=== PATIENT | male | born 1975 | race Caucasian/White ===

== ENCOUNTER 2018-08-26 05:10 | Day surgery (SDC) | payer BC ==
[~2018-08-26 05:10] MED LIST: CLARITIN 10 MG10 MG PO; FLUTICASONE PRO16 GM NASAL; GREEN TEA PO; MOBIC7.5 MG PO; OMEGA-3100 MG PO; PROBIOTIC250 MG PO; [UNRECOGNIZED DRUG - OTHER] PO
[2018-08-26 06:48] VITALS: BP 116/73; BMI 33.3
[2018-08-26] MEDS ORDERED: DURICEF500 MG PO (09:02)
[2018-08-26] MEDS ORDERED: PERCOCET 5-3251 TAB PO (09:02)
--- NOTE | 2018-08-26 14:21 | OP ---
PATIENT NAME: JAYLYN JETER MEDICAL RECORD: [id number] LOCATION:[facility] ADMISSION DATE: SURGEON: BRIAN ZUÑIGA DO DATE OF OPERATION: 08/26/2018 PROCEDURE PERFORMED: Bilateral endoscopic carpal tunnel release. PREOPERATIVE DIAGNOSIS: Bilateral carpal tunnel syndrome. POSTOPERATIVE DIAGNOSIS: Bilateral carpal tunnel syndrome. INDICATIONS: Mr. Jeter is a 43-year-old male who had numbness and tingling in his hands, waking him up at night constantly, and he lost feeling in them even to electric shock as he was putting up an electric fence he could not even feel it. He had nerve conduction study, which showed severe carpal tunnel, right greater than left at the wrist and I informed him that the severity of the compression I would hope to get sensation back, but I could not guarantee it and I could relieve the pain by decompressing it. We are doing the release and he insisted on doing bilateral. I warned him that it would be very painful and he would swell and that he would have to alter his activity, but he would have pain in the palm. He was okay with that and was aware of the risks of damage to the median nerve, need for further surgery, infection and bleeding and he signed the consent. SURGEON: Brian Zuñiga DO DESCRIPTION OF PROCEDURE: The patient was taken to the operative suite, laid in supine position, given 2 grams Ancef and general anesthetic and LMA was placed. The left lower extremity was first prepped and draped in sterile fashion. A timeout had been performed. Everyone was in agreement as to the correct side, site, patient and procedure. Esmarch was used to exsanguinate the left upper extremity and tourniquet was inflated to 250 mmHg, was up for 9 minutes. Incision then began over the wrist crease distally over the palmaris longus tendon and with the 15-blade and then just through the skin and then dissection was made down to the carpal tunnel with Ragnells. Carpal tunnel was opened. The median nerve was exposed and then the forearm fascia was released from distal to proximal under direct loupe visualization. I then entered the carpal tunnel with the dilators and then the sheath entered in the carpal tunnel. The camera was then put in and the probe and the rasp were used showing the transverse carpal ligament and no fibers or any appearance of a transligamentous median nerve or motor branch through the ligament. The knife was then brought in and the ligament was divided. Fat then herniated down to the carpal tunnel. The knife and the blade and the sheath was removed and Ragnell was used to visually look at the transverse carpal ligament. Scissors were used to spread any remaining fibers indicating good release. The tourniquet was then let down and bleeding was coagulated with bipolar and then the site was injected with 10 mL of 0.25% Marcaine with epinephrine and the incision was closed with 5-0 Monocryl in inverted interrupted fashion and then Dermabond placed over it and dressed with Adaptic, 4 x 4s, Kerlix and Coban lightly wrapped around it. The right upper extremity had been prepped and draped and wrapped with an Esmarch and exsanguinated and tourniquet was inflated to 250 mmHg and was up for 14 minutes. The incision was made at the wrist crease over the palmaris longus tendon as well. Dissection was made down to the carpal tunnel and then the forearm fascia was released from distal to proximal again. This side was quite tight and compressed severely. It was very hard to get the instruments even in, OPERATIVE REPORT [id number] JAYLYN JETER but the dilators were put in and then the sheath was put in. The camera was then put in and the transverse carpal ligament was probed. No evidence of a transligamentous nerve was seen and the rasp was also used. Then, the knife was brought in transecting the transverse carpal ligament. Fat then herniated down into the carpal tunnel. This was then visualized with a cine, larger and both sides of the transverse carpal ligament were viewed to be severed and transected. Any remaining fibers were spread with the scissors. The tourniquet was then let down at 14 minutes and any bleeding was coagulated with the bipolar and then injected with 10 mL of 0.25% Marcaine with epinephrine and then closed with 5-0 Monocryl in inverted interrupted fashion and Dermabond glue was placed. He was then awakened and taken to recovery in stable condition. BLOOD LOSS: Minimal. COMPLICATIONS: None. TRANSINT:[id number] Voice Confirmation ID: [id number] DOCUMENT ID: [id number] BRIAN ZUÑIGA DO at 1421 CC: [id number] DICTATION DATE: 08/26/18 0910 CLINICAL RN LIAISON: 08/26/18 1153 [facility] 08/26/18 [place] [id number] [place] [address]
== END 2018-08-26 10:50 | disposition home or self-care (01) ==
LOC: D.OPS 05:10 → D.PAN 07:00 → D.OPS 07:00 → D.PAN 12:15 → D.OPS 12:15
PROVIDERS: ATTEND Orthopaedic Surgery
DX: G56.03 Carpal tunnel syndrome, bilateral upper limbs (principal); Z01.812 Encounter for preprocedural laboratory examination

== ENCOUNTER → 2019-01-12 16:24 | Outpatient (CLI) | payer BC ==
[~2019-01-12 16:24] MED LIST changes: +DURICEF500 MG PO; +PERCOCET 5-3251 TAB PO
[2019-01-12 16:45] LABS: BASOPHILS 0.7 % (0-2); EOSINOPHILS 2.6 % (0-7); HEMATOCRIT 49.9 % (42.0-54.0); HEMOGLOBIN 17.1 g/dL (13.5-17.5); IMMATURE GRANULOCYTES 0.2 % (0-5); LYMPHOCYTES 18.8 % (15-50); MCHC 34.3 g/dL (31.0-37.0); MCV 93.4 fL (80.0-100.0); MEAN PLATELET VOLUME 10.5 fL (7.4-10.4); MONOCYTES 9.1 % (2-11); NEUTROPHILS 68.6 % (40-80); PLATELET COUNT 217 10x3/uL (130-400); RBC 5.34 10x6/uL (4.20-6.10); RDW 13.7 % (11.5-14.5); WBC 8.2 10x3/uL (4.8-10.8)
[2019-01-12 16:56] LABS: ALBUMIN 3.6 g/dL (3.4-5.0); ALKALINE PHOSPHATASE 52 U/L (46-116); ALT (SGPT) 48 U/L (10-68); BILIRUBIN - TOTAL 0.91 mg/dL (0.2-1.3); CALC OSMOLALITY 279 mosm/kg (275-300); CALCIUM 8.3 mg/dL (8.5-10.1); CARBON DIOXIDE 29.6 mmol/L (21.0-32.0); CHLORIDE - SERUM 103 mmol/L (98-107); CREATININE - SERUM 1.1 mg/dL (0.6-1.3); POTASSIUM - SERUM 4.6 mmol/L (3.5-5.1); PROTEIN - SERUM 7.1 g/dL (6.4-8.2); SODIUM 141 mmol/L (136-145); UREA NITROGEN 14 mg/dL (7-18); URIC ACID 6.9 mg/dL (2.6-7.2); eGFR NON AFRICAN AMERICAN 78 mL/min (90-120)
[2019-01-12 16:57] LABS: GLUCOSE 67 mg/dL (74-106)
[2019-01-12 16:58] LABS: C-REACTIVE PROTEIN < 0.2 mg/dL (0.0-0.9)
[2019-01-12 17:46] LABS: ERYTHROCYTE SEDIMENTATION RATE 4 mm/hr (0-15)
[2019-01-13 11:10] LABS: ANA REFLEX - ANTICHROMATIN ABS 0.3 AI (0.0-0.9); ANA REFLEX - DBL STRANDED DNA 2 IU/mL (0-9); ANA REFLEX - DIRECT Negative (Negative); ANA REFLEX - RNP ANTIBODIES 0.3 AI (0.0-0.9); ANA REFLEX - SJOGRENS AB SSA <0.2 AI (0.0-0.9); ANA REFLEX - SJOGRENS AB SSB <0.2 AI (0.0-0.9); ANA REFLEX - SMITH AB <0.2 AI (0.0-0.9)
[2019-01-13 21:06] LABS: CYCLIC CITRULL PEPTIDE IGG/IGA 10 units (0-19)
== END | disposition home or self-care (01) ==
LOC: D.LABREF 16:24
PROVIDERS: ATTEND Orthopaedic Surgery
DX: M25.40 Effusion, unspecified joint (principal)